=== PATIENT | male | born 1945 | race Caucasian/White ===

== ENCOUNTER 2020-06-10 09:40 | Emergency (ER) | payer BC, MEDICARE ==
[~2020-06-10] VITALS: Ht 165.1 cm; Wt 100.0 kg
[2020-06-10] MEDS ORDERED: LIDOCAINE 1%/EPI 1:200,000/PF 10 ML VIAL INJ ONE (11:30)
[2020-06-10] MEDS ORDERED: LIDOCAINE 1% 10 ML VIAL INJ ONE (11:30)
[2020-06-10] MEDS ORDERED: PERTUSS(ACELL),DIPH,TET VAC/PF 0.5 ML VIAL IM ONE (11:30)
[2020-06-10] MEDS ORDERED: 0.9% SODIUM CHLORIDE 1000 ML IRRIG SOLUTION BOTTLE IRRIG ONE (12:00)
[2020-06-10 12:45] VITALS: BP 130/87
[2020-06-10] MEDS ORDERED: BACITRACIN 0.9 GM PACKET OINTMENT TP ONE (12:45)
== END 2020-06-10 13:00 | disposition home or self-care (01) ==
LOC: EMS 09:48
DX: S61.210A Laceration without foreign body of right index finger without damage to nail, initial encounter (principal); W26.8XXA Contact with other sharp object(s), not elsewhere classified, initial encounter; Y93.89 Activity, other specified; Y92.89 Other specified places as the place of occurrence of the external cause; Y99.8 Other external cause status
CPT/HCPCS: 12042; 90471; 90715; 99284; J3490; 12052

== ENCOUNTER 2023-07-18 13:11 | Emergency (ER) | payer MEDICARE ==
[~2023-07-18] VITALS: Ht 162.6 cm; Wt 101.0 kg
[2023-07-18] MEDS ORDERED: ATOR40TA71 PO (13:18)
[2023-07-18] MEDS ORDERED: AMLO10TA55 PO (13:18)
[2023-07-18] MEDS ORDERED: PANT40TA54 PO (13:18)
[2023-07-18] MEDS ORDERED: HYDR-4400 PO (16:12)
[2023-07-18 16:40] VITALS: BP 141/57; PULSE 93; RESP 18; TEMP 98.1
== END 2023-07-18 16:58 | disposition home or self-care (01) ==
LOC: EMS 13:32
DX: S62.603A Fracture of unspecified phalanx of left middle finger, initial encounter for closed fracture (principal); E78.00 Pure hypercholesterolemia, unspecified; X58.XXXA Exposure to other specified factors, initial encounter; Y93.89 Activity, other specified; Y92.89 Other specified places as the place of occurrence of the external cause; Y99.8 Other external cause status
CPT/HCPCS: 99283

== ENCOUNTER 2024-05-12 14:22 | Emergency (ER) | payer MEDICARE ==
[~2024-05-12] VITALS: Ht 167.6 cm; Wt 102.3 kg
[~2024-05-12 14:22] MED LIST: AMLO10TA55 PO; ATOR40TA71 PO; HYDR-4400 PO; PANT40TA54 PO
[2024-05-12 14:36] LABS: COVID AG,FIA SOURCE NASAL SWAB
[2024-05-12 15:10] LABS: INFLUENZA TYPE A NEGATIVE FOR TYPE A (NEGATIVE); INFLUENZA TYPE B NEGATIVE FOR TYPE B (NEGATIVE)
[2024-05-12 15:14] LABS: SARS-COV2 (COVID) ANTIGEN,FIA Positive (Negative)
[2024-05-12 16:01] LABS: BASOPHILS % (AUTO) 0.5 % (0.0-2.0); EOSINOPHILS % (AUTO) 0.7 % (1.0-6.0); HEMATOCRIT 39.9 % (41-53); HEMOGLOBIN 13.5 g/dL (13.5-17.5); LYMPHOCYTES % (AUTO) 10.3 % (22.0-44.0); MEAN CORPUSCULAR HGB CONC 33.7 G/dL (31.0-37.0); MEAN CORPUSCULAR VOLUME 89 fL (80-100); MONOCYTES # (AUTO) 0.8 K/uL (0.1-1.0); MONOCYTES % (AUTO) 7.8 % (2.0-9.0); NEUTROPHILS # (AUTO) 7.8 K/uL (1.8-7.7); NEUTROPHILS % (AUTO) 80.7 % (40.0-70.0); PLATELET COUNT (AUTO) 99 K/uL (150-450); RED BLOOD CELL COUNT(AUTO) 4.49 MIL/uL (4.50-5.90); RED CELL DISTRIBUTION WIDTH 14.4 % (11.5-14.5); WHITE BLOOD COUNT (AUTO) 9.7 K/uL (4.5-11.0)
[2024-05-12] MEDS: ACETAMINOPHEN 500 MG TABLET PO ONE (16:18)
[2024-05-12] MEDS: SODIUM CHLORIDE 0.9% 1,000 ML IV ONE (16:18)
[2024-05-12 16:21] LABS: LACTIC ACID 2.5 mmol/L (0.4-2.0)
[2024-05-12 16:23] LABS: ANION GAP 9 mmol/L (8-16); CALCIUM, TOTAL 8.6 mg/dL (8.8-10.5); CARBON DIOXIDE 28 mmol/L (22-29); CHLORIDE 101 mmol/L (98-107); CREATININE 1.37 mg/dL (0.60-1.30); GLOMERULAR FILTR. RATE CALC 50 mL/min (>60); GLUCOSE,RANDOM 118 mg/dL (70-110); SODIUM SERUM 138 mmol/L (136-145); UREA NITROGEN, BLOOD 15 mg/dL (7-18)
[2024-05-12 16:24] LABS: PLATELET MORPHOLOGY COMMENT LARGE PLTS PRESENT; RBC MORPHOLOGY COMMENT NORMAL RBC MORPH
[2024-05-12 16:27] LABS: ALANINE AMINOTRANSFERASE 19 U/L (12-78); ALBUMIN 3.6 g/dL (3.4-5.0); ALKALINE PHOSPHATASE 84 U/L (46-116); ASPARTATE AMINOTRANSFERASE 16 U/L (15-37); BILIRUBIN,TOTAL 0.9 mg/dL (0.1-1.0)
[2024-05-12] MEDS ORDERED: DOXYCYCLINE HYCLATE 100 MG in DEXTROSE 5%-WATER 100 ML IV ONE (16:30)
[2024-05-12] MEDS ORDERED: CefTRIAXone 1 GM/DEXTROSE 50 ML IV ONE (16:30)
[2024-05-12] MEDS: CEFEPIME HCL 2 GM in DEXTROSE 5%-WATER 50 ML IV ONE (16:44)
[2024-05-12] MEDS: VANCOMYCIN 1.5 GM/WATER(PEG) 300 ML IV ONE (16:44)
[2024-05-12 20:17] LABS: APPEARANCE,URINE CLEAR (CLEAR); BILIRUBIN,URINE NEGATIVE (NEGATIVE); COLOR,URINE COLORLESS (YELLOW); GLUCOSE, URINE (UA) NEGATIVE (NEGATIVE); KETONES,URINE NEGATIVE (NEGATIVE); LEUKOCYTE ESTERASE ,URINE NEGATIVE (NEGATIVE); NITRATE,URINE NEGATIVE (NEGATIVE); OCCULT BLOOD,URINE NEGATIVE (NEGATIVE); PROTEIN,URINE TRACE mg/dL (NEGATIVE); UROBILINOGEN,URINE <=1.0 mg/dL (<=1.0)
[2024-05-12 21:00] VITALS: BP 124/63; PULSE 97; RESP 16; TEMP 99.1; O2SAT 97
== END 2024-05-12 22:26 | disposition home or self-care (01) ==
LOC: EMS 14:22
DX: U07.1 COVID-19 (principal); A41.9 Sepsis, unspecified organism; E78.00 Pure hypercholesterolemia, unspecified; I10 Essential (primary) hypertension; Z98.890 Other specified postprocedural states
CPT/HCPCS: 99285; 96365; 71045; 87426; 80048; 80076; 81003; 83605; 85025; 87040; 87804; 36415; 93005; J0692; J7060; J7030; J3490